=== PATIENT | female | born 1970 | race Caucasian/White ===

== ENCOUNTER → 2018-03-26 | Outpatient (CLI) | payer OTHER ==
--- NOTE | 2018-03-27 00:04 | MR ---
EXAMINATION TYPE: MR brain and iac wo/w con DATE OF EXAM: 03/26/2018 COMPARISON: None HISTORY: Mastoidectomy 2016, Infection, Gadavist 7.5ml TECHNIQUE: Multiplanar, multisequence images of the brain and brainstem is performed without and with IV contras t, utilizing 7.5 mL intravenous Gadavist . FINDINGS: The ventricles and sulci appear normal. There is no mass effect nor midline shift. There is no sign o f intracranial hemorrhage. There is no evidence of cortical infarct. Brainstem appears normal. Sella turcica is normal. Corpus callosum is normal. Internal auditory canals appear normal. There is no fortunato dence of cerebellopontine angle mass. Acoustic and vestibular nerves appear normal. Optic chiasm and pituitary stalk appear normal. There is no pathologic enhancement. There is some deformity of the lef t mastoid sinus consistent with previous surgery. There is increased signal in the right mastoid sinu s suggestive of some degree of mastoiditis. IMPRESSION: Normal internal auditory canals. Normal brain. Possible right-sided mild mastoiditis. Possible previous left side mastoid surgery. Comparison with a n old exam would be helpful.
== END | disposition home or self-care (01) ==
LOC: RADMRIMAIN 19:55
PROVIDERS: ATTEND Nurse Practitioner Family
DX: C30.1 Malignant neoplasm of middle ear (principal)
CPT/HCPCS: 70553; A9581